=== PATIENT | male | born 1980 | race Caucasian/White ===

== ENCOUNTER 2018-10-23 09:46 | Day surgery (SDC) | payer BC, OTHER ==
--- NOTE | 2018-10-23 08:18 | HP ---
DATE OF SURGERY: 10/23/2018 HISTORY OF PRESENT ILLNESS: The patient is a 38 year-old with increased aches and pain left flank subcutaneous mass and/or cyst. Additionally, he has an area on his back and a couple of areas on his chest with increasing symptoms. He desires excisional biopsy. PAST MEDICAL HISTORY: None. PAST SURGICAL HISTORY: None. MEDICATIONS: ALLERGIES: NKDA. FAMILY HISTORY: Cancer. SOCIAL HISTORY: No smoking or alcohol abuse. REVIEW OF SYSTEMS: Twelve systems reviewed per admission assessment. No chest pain or palpitations other systems negative or noncontributory as above and per preadmission questionnaire. PHYSICAL EXAMINATION: GENERAL: No acute distress. HEENT: Sclerae nonicteric. NECK: No JVD. CHEST: Equal excursion, nonlabored breathing. CVS: Regular rate and rhythm. ABDOMEN: Soft. No peritoneal signs. EXTREMITIES: No significant edema. NEURO: Alert, oriented, moving extremities symmetrically. No gross motor deficits noted. IMPRESSION: He does have these enlarging subcutaneous mass or cyst flank area, back and left chest x2. I feel he would benefit from excisional biopsy. Risks and benefits explained in detail including but not limited to bleeding or infection, risk of wound complications or dehiscence possibly requiring packing, general risk of aches, pain, burning or numbness. The fact that what we excise likely will not recur but he could get similar subcutaneous mass, lipoma or cyst adjacent to or elsewhere on his body. He understands and agrees to the planned procedure as well as general risk of anesthesia, deep venous thrombosis, pulmonary embolism, pneumonia but not limited to. He agrees to the planned procedure, will proceed with excisional biopsy of back, left flank, left chest subcutaneous mass and/or cyst.
[~2018-10-23 09:46] MED LIST: Lactated Ringers 1,000 ML IV ONE; Sensorcaine 0.25% 10 ML ONE
[2018-10-23] MEDS ORDERED: BRIDION 200MG/2ML IV ONE (09:47)
[2018-10-23] MEDS ORDERED: Ephedrine Sulfate 50 MG/ML IV ONE (09:47)
[2018-10-23] MEDS ORDERED: TORAdol 30 mg Injection IV ONE (09:47)
[2018-10-23] MEDS ORDERED: Zofran 4 MG/2 ML VIAL IV ONE (09:47)
[2018-10-23] MEDS ORDERED: Decadron 4 MG INJ IV ONE (09:47)
[2018-10-23] MEDS ORDERED: DILAUDID 2 MG INJECTION IV ONE (09:47)
[2018-10-23] MEDS ORDERED: DIPRIVAN 200 MG/20 ML IV ONE (09:47)
[2018-10-23] MEDS ORDERED: Quelicin Fliptop 200 MG/10 ML IV ONE (09:47)
[2018-10-23] MEDS ORDERED: Zemuron 100 MG/10 ML IV ONE (09:47)
[2018-10-23] MEDS ORDERED: SUBLIMAZE 100 MCG/2 ML IV ONE (09:47)
[2018-10-23] MEDS ORDERED: Lactated Ringers 1,000 ML IV SCH (10:30)
[2018-10-23] MEDS ORDERED: KEFZOL 1 GM ONE (11:32)
[2018-10-23] MEDS ORDERED: Zofran 4 MG/2 ML VIAL ONE (13:01)
[2018-10-23] MEDS ORDERED: DILAUDID 2 MG INJECTION ONE (13:01)
[2018-10-23 14:29] VITALS: BP 132/89; O2SAT 95
[2018-10-23 14:34] VITALS: PULSE 97
--- NOTE | 2018-10-24 09:13 | OP ---
SURGERY DATE/TIME: 10/23/2018 1120 PREOPERATIVE DIAGNOSES: 1) Enlarging symptomatic flank and chest subcutaneous masses. 2) Enlarging symptomatic back cyst or subcutaneous mass. POSTOPERATIVE DIAGNOSES: 1) Enlarging symptomatic flank and chest subcutaneous masses. 2) Enlarging symptomatic back ruptured cyst or subcutaneous mass consistent with lipoma, path pending. PROCEDURE: 1) Excisional biopsy upper left chest lipoma approximately 4.5 cm. 2) Excisional biopsy of the lower left chest lipoma approximately 4 cm. 3) Excisional biopsy of upper left flank approximately 2 cm lipoma. 4) Excisional biopsy of lower anterior left flank approximately 3 cm lipoma. 5) Excisional biopsy of lower posterior left flank lipoma approximately 3.5 cm. 6) Excisional biopsy of ruptured back cyst site approximately 3.5 cm with margin. 7) All of the above with intermediate closure. SURGEON: Dr. Jovon Dos Santos. ANESTHESIA: General. ESTIMATED BLOOD LOSS: Minimal. INDICATIONS: As noted above. Risks and benefits explained in detail and not limited to and consent obtained. DESCRIPTION OF PROCEDURE AND FINDINGS: The patient is taken to the operating room. General anesthesia induced. Placed in lateral position. Appropriate padding per anesthesia and OR staff. The back, flank and chest were prepped and draped in usual sterile fashion. After official time out and no disagreement with planned procedure, starting first at the upper left flank, lower anterior left flank, lower posterior left flank, incision made over the top. Dissection carried down circumferentially around 3 cm lipomatous density in the upper left flank, 3 cm lipomatous density down to underlying fascia, the lower anterior left flank and a 3.5 cm lipomatous density in the posterior left flank. Good hemostasis noted. Attention was then turned to the chest area. A transverse incision made over the upper left chest area. Dissection carried down circumferentially around what appeared to be a 4.5 cm lipomatous density carefully dissecting off the underlying fascia and passed off. This appeared to be much more denser than the surrounding denser density denser than the surrounding more normal appearing subcutaneous fat. Good hemostasis noted. A transverse incision made overlying the lower left chest area. Dissection carried down circumferentially around what appeared to be a 4 cm lipomatous density dissecting off the underlying fascia, chest wall and passed off. Good hemostasis noted. The surrounding subcutaneous fat was prominent but did not appear to be lipomatous in nature. Attention was then turned to the back. A transverse incision made overlying this area. Dissection carried circumferentially what appeared to be a ruptured back cyst site. It took some time but slowly and carefully dissected off the underlying fascia, this measured about 3.5 cm in size. Copious amount of irrigation irrigating until clear. Appeared to have good hemostasis. The wound appeared to be clean after closure. The skin closed with interrupted 3-0 Vicryl closing the subcu down to the fascia. Skin closed with 4-0 Vicryl running subcuticular fashion interrupted 3-0 Prolene used to reinforce given location on the back. Steri-Strips and sterile dressing applied. Gloves and instruments were then changed. Then this is the only one that was a ruptured cyst site and the remaining were lipomatous densities. Using clean gloves and instruments left lower posterior flank was closed with interrupted 3-0 Vicryl down to the level of the fascia. Skin closed with 4-0 Vicryl in running subcuticular fashion interrupted 3-0 Prolene used to reinforce the area. Steri-Strips and sterile dressing applied. This was then repeated on the left lower anterior flank this was closed also in intermediate fashion interrupted 3-0 Vicryl subcu down to the level of the fascia. Skin closed with 4-0 Vicryl running subcuticular fashion. As this was not on the posterior area, I felt less tension and it was not felt to require Prolene at this point, this was then repeated in the upper left flank. Interrupted 3-0 Vicryl closing subcu down to the level of the fascia. Skin closed with 4-0 Vicryl in running subcuticular fashion. Again repeating this in the left upper and left lower chest closed with 3-0 Vicryl closing the deep superficial subcu down to level of fascia. Skin closed with 4-0 Vicryl running subcuticular fashion. 0.25% Marcaine local injected along each of the wounds. Steri-Strips and sterile dressings applied. It should be noted that the chest areas were much deeper wounds and may need compression dressing to be applied. The patient tolerated the procedure well. There were no immediate complications. Findings discussed with his who is a nurse in the OR here. He was transferred to the recovery room in stable condition.
== END 2018-10-23 14:24 | disposition home or self-care (01) ==
LOC: SDC 09:46
PROVIDERS: ATTEND Surgery
DX: D17.1 Benign lipomatous neoplasm of skin and subcutaneous tissue of trunk (principal)
CPT/HCPCS: 88304; 94250; J0330; J0690; J1100; J1170; J1885; J2405; J2704; J3010